=== PATIENT | male | born 1945 | race Caucasian/White ===

== ENCOUNTER → 2018-05-09 | Outpatient (CLI) | payer MEDICARE ==
--- NOTE | 2018-05-09 11:06 | US ---
EXAMINATION TYPE: US kidneys/renal and bladder DATE OF EXAM: 05/09/2018 COMPARISON: NONE CLINICAL HISTORY: 72-year-old male Microscopic hematuria R31.21 R35.0 frequency. Micro hematuria, no pain, urine frequency TECHNIQUE: Multiple sonographic images of the kidneys and bladder are obtained. FINDINGS: EXAM MEASUREMENTS: Right Kidney: 11.3 x 4.9 x 5.9 cm Left Kidney: 11.1 x 4.6 x 5.7 cm No hydronephrosis on either side. Bladder: distended, wnl as visualized Bilateral Jets seen IMPRESSION: 1. No hydronephrosis. 2. No gross abnormality of the urine distended bladder.
== END | disposition home or self-care (01) ==
LOC: RADUSWWP 09:31
PROVIDERS: ATTEND Urology
DX: R31.21 Asymptomatic microscopic hematuria (principal); R35.0 Frequency of micturition
CPT/HCPCS: 76770